=== PATIENT | female | born 2000 | race Native Hawaiian/Other Pacific Islander ===

== ENCOUNTER → 2024-04-01 | Outpatient (CLI) | payer OTHER ==
[2024-04-01 11:56] VITALS: BP 107/60; PULSE 60; RESP 16; TEMP 98.2
--- NOTE | 2024-04-01 12:34 | P.SLEEP ---
History of Present Illness DATE: 04/01/2024 CONSULTATION/NEW PATIENT EVALUATION HISTORY OF PRESENT ILLNESS/SLEEP-WAKE EVALUATION: 23-year-old lady had been evaluated in the sleep center for possible obstructive sleep apnea hypopnea syndrome. SLEEP SCHEDULE: Usually sleep schedule from 11 PM to 8 AM on weekdays and from midnight until 10 AM on weekend. FALLING ASLEEP: No problems with falling asleep. DURING SLEEP: Patient wakes up from sleep every 3 hours with 2 episodes of nocturia during sleep. Positive history of grinding teeth questionable episode of hypnogogical hallucinations, no sleep paralysis, no cataplexy. DURING THE DAY/WAKE STATE: In the morning patient wake up tired. [place] sleepiness scale is 6. Usually patient does not take naps. PAST MEDICAL HISTORY: History of depression and anxiety. PAST SURGICAL HISTORY: None. MEDICATIONS: Please see below. SOCIAL HISTORY: Please see below. FAMILY HISTORY: Please see below. REVIEW OF SYSTEMS: Multiple awakenings from sleep, tiredness and sleepiness during the day. No fevers. No double vision. No recent chest pain. No shortness of breath. No abdominal pain. No bleeding episodes. No blood in urine. No seizure episodes. PHYSICAL EXAMINATION: GENERAL: A pleasant patient without any distress. VITAL SIGNS: Please see below, weight 150 pounds, BMI 22.4. HEENT: PERRLA, EOMI. Evaluation of oropharynx showed tongue protrudes midline, low position of soft palate Mallampati 4, retrognathia 1 to 2 mm. NECK: Supple. No JVD. Thyroid is not palpable. 13.5 inches in circumference. LUNGS: Clear to percussion and to auscultation. Good air exchange. No wheezing or rhonchi. HEART: S1, S2 regular. No murmurs, gallops or rubs. ABDOMEN: Soft and nontender. Bowel sounds are present. No organomegaly appreciated. EXTREMITIES: No clubbing or cyanosis. REDEYE GUNNER: Awake, alert, and oriented x3. Cranial nerves 2 to 7 intact. There is no fasciculation or atrophy noted. No focal deficits observed. ASSESSMENT: 1. Multiple awakenings from sleep every 3 hours with nocturia, extremely low position of soft palate Mallampati 4, feeling tiredness in the morning after awakenings. Possible obstructive sleep apnea hypopnea syndrome. 2. History of depression. 3. History of anxiety. 4. Grinding teeth. PLAN: 1. Home sleep apnea test for evaluation of patient's breathing during sleep. 2. Following plan after reading sleep study. 3. Preferable position during sleep on the side. 4. No driving if patient feels any sleepiness. Patient is aware of civil and criminal liability for unsafe driving. 5. Sleep hygiene with regular sleep time for at least 7.5-8 hours. 6. Watching weight. Thank you very much for referring this patient for consultation. Sincerely, Tristen Iraheta MD, PhD, FAASM. Diplomat of [employer], Sleep Medicine Board by [employer] [employer] [employer] Worker [facility] [employer] cc: Toñito Torres MD Past Medical History Past Medical History: No Reported History History of Any Multi-Drug Resistant Organisms: None Reported Past Surgical History: Hernia Repair Additional Past Surgical History / Comment(s): patient was [age] years old Past Anesthesia/Blood Transfusion Reactions: No Reported Reaction Past Psychological History: Anxiety, Depression Smoking Status: Vaper Past Drug Use History: Marijuana - Past Family History Father Additional Family Medical History / Comment(s): Narcolepsy Brother(s) Additional Family Medical History / Comment(s): Narcolepsy Medications and Allergies Home Medications Medication Instructions Recorded Confirmed Type norgestimate-ethinyl estradioL 1 each PO DAILY 04/01/24 04/01/24 History [Jenny 0.25-0.035 mg Tablet] traZODone HCL [Desyrel] 50 mg PO DIRECTED PRN 04/01/24 04/01/24 History Physical Exam Vitals: Vital Signs Temp Pulse Resp BP Pulse Ox 04/01/24 11:55 98.2 F 60 16 107/60 98 Intake and Output 03/31/24 04/01/24 04/01/24 22:59 06:59 14:59 Other: Weight 68.039 kg Sleep Note - Sleep Data ESS Total: 6 - Sleep Note Sleep Note: Temperature: 98.2 F Pulse Rate: 60 Respiratory Rate: 16 Blood Pressure: 107/60 SpO2: 98 Height: 5 ft 8.5 in Weight: 68.039 kg BMI: Neck Circumference: 13.5
== END ==
LOC: 3 N SLEEP 11:38
PROVIDERS: ATTEND Internal Medicine
DX: R35.1 Nocturia (principal); G47.63 Sleep related bruxism; F41.9 Anxiety disorder, unspecified; F32.A Depression, unspecified
CPT/HCPCS: 99202

== ENCOUNTER → 2024-04-12 | Outpatient (CLI) | payer OTHER ==
--- NOTE | 2024-04-14 10:49 | P.PCN ---
Description of Procedure: CLINICAL: A home sleep apnea test has been done for confirmation of possible obstructive sleep apnea-hypopnea syndrome. DESCRIPTION OF PROCEDURE: RESULTS: Recording time was 8 hours 9 minutes. Evaluation time was 5 hours 21 minutes. Awaiting a bed quality is over the test. Several hours no signal from oximeter in several hours no signal from respiratory sensor. Raw data of sleep recording has been reviewed. Respiratory channel showed 7 apneas and 3 hypopneas. Apnea-hypopnea index was 1.9 per hour. Pulse rate in the range between minimum 45, maximum 200, average 45 by computer calculation. IMPRESSION: 1. Very bad quality of the test. Please see other impressions from consultation. PLAN: 1. Repeat home sleep apnea test. 2. Following plan after reading sleep study. 3. Sleep hygiene with regular time in bed for at least 8 hours. 4. No driving if feeling any sleepiness. Thank you very much for allowing me to participate in the management of your patient. Sincerely, Tristen Iraheta MD, PhD, FAASM Diplomat of [employer] [place] [employer] Sleep Medicine Board of [place] [employer] P[employer] Copy Camera Operator of [facility] [place] cc: Marsha Torres MD
== END ==
LOC: 3 N SLEEP 10:55
PROVIDERS: ATTEND Internal Medicine
DX: G47.33 Obstructive sleep apnea (adult) (pediatric) (principal); G47.63 Sleep related bruxism

== ENCOUNTER → 2024-05-24 | Outpatient (CLI) | payer OTHER ==
--- NOTE | 2024-06-02 17:15 | P.PCN ---
Description of Procedure: CLINICAL: A home sleep apnea test has been done for confirmation of possible obstructive sleep apnea-hypopnea syndrome. DESCRIPTION OF PROCEDURE: RESULTS: Recording time was 5 hours 20 minutes. Evaluation time was 5 hours 8 minutes. Evaluation time is sufficient for making conclusion about results of the test. Raw data of sleep recording has been reviewed and is adequate. Respiratory channel showed 1 apneas and 3 hypopneas. Apnea-hypopnea index was 0.8 per hour. Pulse rate in the range between minimum 57, maximum 132, average 81 by computer calculation. Lowest desaturation was 91%. IMPRESSION: 1. No significant respiratory abnormalities have been documented during the sleep study. 2. Snoring have been documented. Please see other impressions from consultation. PLAN: 1. Sleep hygiene with regular time in bed for at least 8 hours. 2. Preferable position during the sleep on the side. 3. Watching weight. 4. No driving if feeling any sleepiness. Thank you very much for allowing me to participate in the management of your patient. Sincerely, Tristen Iraheta MD, PhD, FAASM Diplomat of [employer] Sleep Medicine Board of [employer]ather Shaver [facility] [place] cc: Marsha Torres MD
== END ==
LOC: 3 N SLEEP 13:15
PROVIDERS: ATTEND Internal Medicine
DX: R06.83 Snoring (principal)